=== PATIENT | male | born 1995 | race Caucasian/White ===

== ENCOUNTER 2022-03-07 11:46 | Emergency (ER) | payer OTHER ==
[~2022-03-07] VITALS: Ht 180.3 cm; Wt 89.0 kg
[2022-03-07 11:49] VITALS: BP 128/70
== END 2022-03-07 15:07 | disposition home or self-care (01) ==
LOC: EMS 11:49
DX: S71.132A Puncture wound without foreign body, left thigh, initial encounter (principal); M79.652 Pain in left thigh; W34.00XA Accidental discharge from unspecified firearms or gun, initial encounter; Y93.89 Activity, other specified; Y92.89 Other specified places as the place of occurrence of the external cause; Y99.8 Other external cause status
CPT/HCPCS: 93971; 99284; Z7502